=== PATIENT | female | born 1970 | race Caucasian/White ===

== ENCOUNTER 2024-04-07 13:15 | Emergency (ER) | payer BC, SELFPAY ==
[2024-04-07] VITALS (19 sets, daily range): BP systolic 95–139; BP diastolic 69–86; PULSE 88–106; RESP 13–26; TEMP 36.6; O2SAT 91–98
[2024-04-07 15:58] LABS: Basophils Percent Auto 0.3 % (0.2-1.2); Hematocrit 41.5 % (37.0-47.0); Hemoglobin 13.2 g/dL (12.0-15.0); Immature Granulocyte Absolute 0.02 K/mm3 (0.00-0.031); Immature Granulocyte Percent A 0.3 % (0-0.5); Lymphocytes Absolute Auto 0.64 K/mm3 (0.9-3.2); Lymphocytes Percent Auto 10.4 % (18.3-44.2); Mean Corpuscular HGB Conc 31.8 g/dl (32-36); Mean Corpuscular Hemoglobin 27.7 pg (26-34); Mean Platelet Volume 9.9 fl (7.4-10.4); Monocytes Absolute Auto 0.4 K/mm3 (0.1-0.6); Monocytes Percent Auto 6.7 % (2.6-8.5); Neutrophils Absolute Auto 5.1 K/mm3 (1.3-6.7); Neutrophils Percent Auto 82.3 % (45.5-73.1); Platelet Count Result 224 k/mm3 (150-375); Red Blood Count 4.77 M/mm3 (4.2-5.4); Red Cell Distribution Width 13.7 % (11.5-14.5); White Blood Count 6.1 K/mm3 (4.5-10.0)
--- NOTE | 2024-04-07 15:59 | ED.GENADULT ---
HPI - General Adult General Chief complaint: Shortness of Breath/Dyspnea Stated complaint: dyspnea Time Seen by Provider: 04/07/24 14:59 History of Present Illness HPI narrative: 54-year-old female presenting to the emergency department for evaluation for upper respiratory symptoms and cough and shortness of breath. Patient did present to the urgent care for evaluation. Urgent Care was concerned because the patient was still having some shortness of breath after breathing treatments of the referred her to the emergency department for further workup including ruling out of a D-dimer. Patient does report having multiple episodes of pneumonia and bronchitis as a child and that she does have some underlying lung disease. Related Data Allergies Allergy/AdvReac Type Severity Reaction Status Date / Time No Known Allergies Allergy Mild Unverified 04/07/24 14:50 Review of Systems Review of Systems: All systems reviewed & are unremarkable except as noted in HPI and below PMFSH Family History Family History (Updated 12/24/15 @ 23:19 by DOCTOR UNKNOWN) Sibling Family history of thyroid disease Hypertension Mother Hypertension Father Family history of diabetes mellitus in first degree relative Family history of coronary artery disease Social History Social History Alcohol intake: never Exam Narrative: APPEARANCE: Well appearing, no pain, no distress, well-nourished. HEAD: normocephalic, atraumatic. EYES: PERRLA/EOMI, conjunctivae clear. NOSE: Normal no drainage EARS:TMS clear with good light reflex. THROAT: Pharynx clear, no exudate. NECK: Supple. No adenopathy, no masses. RESPIRATORY: Airway patent, respirations nonlabored. Clear to auscultation bilaterally, no rales, rhonchi, wheezing. CARDIOVASCULAR: Regular rate and rhythm without murmurs rubs or gallops. ABDOMINAL: Soft, nontender, nondistended, normal bowel sounds MUSCULOSKELETAL: Moves all extremities. Strength/ROM intact, No edema, No calf tenderness. NEURO: Alert. Cranial nerves II through XII intact. Grossly intact SKIN: Warm, dry. Normal Color Course Vital Signs Vital signs: Vital Signs Temperature 97.8 F 04/07/24 13:16 Pulse Rate 106 H 04/07/24 13:16 Respiratory Rate 19 04/07/24 13:16 Blood Pressure 139/77 04/07/24 13:16 Pulse Oximetry 95 04/07/24 13:16 Oxygen Delivery Room Air 04/07/24 13:16 Temperature 97.8 F 04/07/24 13:16 Pulse Rate 99 04/07/24 17:52 Respiratory Rate 20 04/07/24 17:52 Blood Pressure 126/69 04/07/24 17:52 Pulse Oximetry 95 04/07/24 17:52 Oxygen Delivery Room Air 04/07/24 14:46 Medical Decision Making MDM Narrative Medical decision making narrative: 54-year-old female presents to the emergency department for evaluation for shortness of breath. Patient is afebrile with no leukocytosis and hemoglobin of 13.2. Patient's D-dimer was negative. Patient's CMP is similar to baseline. Patient was positive for influenza A. Negative for influenza B RSV and COVID. Patient was ambulated in the emergency department and had no hypoxia. Patient was provided an albuterol inhaler and Tessalon Perles for home. Patient was not hypoxic the emergency department. Patient was comfortable plan for discharge and close follow-up. Patient was encouraged of close follow-up with primary care physician. All questions concerns were addressed. Differential Diagnosis Differential Diagnosis: Influenza, RSV, COVID, pneumonia, pulmonary embolism Vital Signs Vital Signs: Vital Signs Temperature 97.8 F 04/07/24 13:16 Pulse Rate 106 H 04/07/24 13:16 Respiratory Rate 19 04/07/24 13:16 Blood Pressure 139/77 04/07/24 13:16 Pulse Oximetry 95 04/07/24 13:16 Oxygen Delivery Room Air 04/07/24 13:16 Temperature 97.8 F 04/07/24 13:16 Pulse Rate 99 04/07/24 17:52 Respiratory Rate 20 04/07/24 17:52 Blood Pressure 126/69 04/07/24 17:52 Pulse Oximetry 95 04/07/24 17:52 Oxygen Delivery Room Air 04/07/24 14:46 Lab Data Lab results reviewed: Yes I reviewed the patient's lab results. 04/07/24 15:48 04/07/24 15:48 Labs: Lab Results 04/07/24 Range/Units 15:48 WBC 6.1 (4.5-10.0) K/mm3 RBC 4.77 (4.2-5.4) M/mm3 Hgb 13.2 (12.0-15.0) g/dL Hct 41.5 (37.0-47.0) % MCV 87.0 (80-100) fl MCH 27.7 (26-34) pg MCHC 31.8 L (32-36) g/dl RDW 13.7 (11.5-14.5) % Plt Count 224 (150-375) k/mm3 MPV 9.9 (7.4-10.4) fl Immature Gran % (Auto) 0.3 (0-0.5) % Neut % (Auto) 82.3 H (45.5-73.1) % Lymph % (Auto) 10.4 L (18.3-44.2) % [place] % (Auto) 6.7 (2.6-8.5) % Eos % (Auto) 0.0 (0-4.4) % Baso % (Auto) 0.3 (0.2-1.2) % Lymph # (Auto) 0.64 L (0.9-3.2) K/mm3 [place] # (Auto) 0.4 (0.1-0.6) K/mm3 Eos # (Auto) 0.0 (0-0.3) K/mm3 Baso # (Auto) 0.0 (0.0-0.1) K/mm3 Abs Immat Gran (auto) 0.02 (0.00-0.031) K/mm3 Absolute Neuts (auto) 5.1 (1.3-6.7) K/mm3 Absolute Nucleated RBC 0.000 (0.0-0.012) K/mm3 Nucleated RBC % 0.0 (0.0-0.2) % D-Dimer 0.40 (<0.48) ug/mL Sodium 136 L (137-145) mmol/L Potassium 3.5 (3.4-5.0) mmol/L Chloride 101 (98-107) mmol/L Carbon Dioxide 28 (22-30) mmol/L Anion Gap 7 (4-12) mmol/L BUN 20 H (7-17) mg/dL Creatinine 1.20 H (0.7-1.0) mg/dL Estim Creat Clear Calc 56 ml/min Estimated GFR 47 L (59 - ) Glucose 177 H (65-110) mg/dL Calcium 8.7 (8.4-10.2) mg/dL Total Bilirubin 0.5 (0.2-1.3) mg/dL AST 29 (14-36) U/L ALT 32 (6-35) U/L Alkaline Phosphatase 57 (38-126) U/L Total Protein 8.0 (6.3-8.2) g/dL Albumin 4.2 (3.5-5.1) g/dL Influenza A (RT-PCR) Positive A (Negative) Influenza B (RT-PCR) Negative (Negative) RSV (RT-PCR) Negative (Negative) SARS-CoV-2 RNA (RT-PCR) Negative (Negative) Group A Strep (PCR) Not detected (Negative) Discharge Plan Discharge Clinical Impression: Influenza A Patient Disposition: Home, Self-Care Condition: Stable Instructions: Antibiotic Form, Influenza (ED) Additional Instructions: Albuterol for shortness of breath. Tessalon Perles for cough. Have close follow-up with your primary care physician. If you have any worsening symptoms then please call or return to the emergency department. Prescriptions: New benzonatate 100 mg capsule 100 mg PO BID PRN (Reason: cough) Qty: 14 0RF albuterol sulfate 90 mcg/actuation HFA aerosol inhaler 1 inh inhalation QID PRN (Reason: shortness of breath or wheezing) Qty: 6.7 0RF Follow-up/Referrals: Jayesh,Kurt Mensah MD [Primary Care Provider] -
[2024-04-07 16:08] LABS: Alanine Aminotransferase 32 U/L (6-35); Albumin Level 4.2 g/dL (3.5-5.1); Alkaline Phosphatase 57 U/L (38-126); Anion Gap 7 mmol/L (4-12); Aspartate Amino Transferase 29 U/L (14-36); Bilirubin,Total 0.5 mg/dL (0.2-1.3); Blood Urea Nitrogen 20 mg/dL (7-17); Calcium 8.7 mg/dL (8.4-10.2); Carbon Dioxide 28 mmol/L (22-30); Chloride 101 mmol/L (98-107); Estimated CRCL calculation 56 ml/min; Estimated Glomerular Filt Rate 47; Glucose 177 mg/dL (65-110); Potassium 3.5 mmol/L (3.4-5.0); Sodium 136 mmol/L (137-145)
[2024-04-07] MEDS: ALBUTEROL SULFATE NEB 2.5 MG/3 ML INH INHALATION (16:12)
[2024-04-07 16:21] LABS: Strep Group A RT-PCR NOT DETECTED (Negative)
[2024-04-07 16:36] LABS: Influenza A QL RT-PCR Positive (Negative); Influenza B QL RT-PCR Negative (Negative); RSV RNA, RT-PCR Negative (Negative); SARS-CoV-2 RNA PCR Negative (Negative)
== END 2024-04-07 17:54 | disposition home or self-care (01) ==
PROVIDERS: Emergency Provider Emergency Medicine; PCP Internal Medicine
DX: J10.1 Influenza due to other identified influenza virus with other respiratory manifestations (principal); Z20.822 Contact with and (suspected) exposure to COVID-19
CPT/HCPCS: 36415; 80053; 85025; 85380; 87637; 87651; 94640; 99283